=== PATIENT | female | born 1970 | race African-American/Black ===

== ENCOUNTER 2016-11-18 12:44 | Emergency (ER) | payer OTHER ==
[~2016-11-18] VITALS: Ht 170.2 cm; Wt 100.0 kg
[~2016-11-18 12:44] MED LIST: BP MED PO
[2016-11-18 16:00] VITALS: BP 139/69
[2016-11-18] MEDS ORDERED: OxyCODONE HCL/ACETAMINOPHEN 5-325 MG TABLET PO ONE (16:00)
[2016-11-18 16:35] LABS: APPEARANCE,URINE CLEAR (CLEAR); GLUCOSE, URINE (UA) NEGATIVE (NEGATIVE); KETONES,URINE NEGATIVE (NEGATIVE); LEUKOCYTE ESTERASE ,URINE NEGATIVE (NEGATIVE); PROTEIN,URINE NEGATIVE (NEGATIVE)
[2016-11-18 16:47] LABS: ADD UA MICROSCOPIC NO; OCCULT BLOOD,URINE NEGATIVE (NEGATIVE)
== END 2016-11-18 17:44 | disposition home or self-care (01) ==
LOC: EMS 12:45
DX: N94.6 Dysmenorrhea, unspecified (principal); I10 Essential (primary) hypertension
CPT/HCPCS: 99285

== ENCOUNTER 2016-12-07 18:41 | Emergency (ER) | payer OTHER ==
[~2016-12-07] VITALS: Ht 170.2 cm; Wt 100.0 kg
[2016-12-07] MEDS ORDERED: ACETAMINOPHEN 325 MG TABLET PO ONE (20:15)
[2016-12-07] MEDS ORDERED: DEXAMETHASONE 4 MG TABLET PO ONE (20:15)
[2016-12-07 20:30] VITALS: BP 123/85
[2016-12-07] MEDS ORDERED: DEXAMETHASONE SOD PHOS 4 MG/ML VIAL IM ONE (20:30)
== END 2016-12-07 20:32 | disposition home or self-care (01) ==
LOC: EMS 18:42
DX: J02.9 Acute pharyngitis, unspecified (principal); I10 Essential (primary) hypertension
CPT/HCPCS: 96372; 99283; J1100; J8540

== ENCOUNTER 2017-01-08 02:37 | Emergency (ER) | payer OTHER ==
[~2017-01-08] VITALS: Ht 170.2 cm; Wt 103.2 kg
[2017-01-08 04:31] VITALS: BP 141/83
[2017-01-08] MEDS ORDERED: IBUPROFEN 600 MG TABLET PO ONE (05:00)
== END 2017-01-08 05:26 | disposition home or self-care (01) ==
LOC: EMS 02:38
DX: M94.0 Chondrocostal junction syndrome [Tietze] (principal); I10 Essential (primary) hypertension
CPT/HCPCS: 71020; 81025; 93005; 99284

== ENCOUNTER 2018-06-05 18:05 | Emergency (ER) | payer OTHER ==
[~2018-06-05] VITALS: Ht 170.2 cm; Wt 102.3 kg
[2018-06-05] MEDS ORDERED: BP MED (18:08)
[2018-06-05 18:11] VITALS: BP 133/77
== END 2018-06-05 21:55 | disposition left against medical advice (07) ==
LOC: EMS 18:06
DX: R10.9 Unspecified abdominal pain (principal); M54.5 Low back pain; M79.604 Pain in right leg; Z53.21 Procedure and treatment not carried out due to patient leaving prior to being seen by health care provider

== ENCOUNTER 2019-07-01 15:43 | Emergency (ER) | payer OTHER ==
[~2019-07-01] VITALS: Ht 170.2 cm; Wt 100.0 kg
[~2019-07-01 15:43] MED LIST changes: +BP MED; -BP MED PO
[2019-07-01 15:47] VITALS: BP 141/83
[2019-07-01] MEDS ORDERED: HYDR25TA PO (15:49)
[2019-07-01 16:57] LABS: BASOPHILS % (AUTO) 1.1 % (0.0-2.0); EOSINOPHILS % (AUTO) 1.3 % (1.0-6.0); HEMATOCRIT 33.8 % (36-46); HEMOGLOBIN 11.5 g/dL (12.0-16.0); LYMPHOCYTES # (AUTO) 3.9 K/uL (1.0-4.8); LYMPHOCYTES % (AUTO) 33.9 % (22.0-44.0); MEAN CORPUSCULAR HEMOGLOBIN 26.9 pg (26.0-34.0); MEAN CORPUSCULAR HGB CONC 34.1 G/dL (31.0-37.0); MEAN CORPUSCULAR VOLUME 79 fL (80-100); MONOCYTES # (AUTO) 0.7 K/uL (0.1-1.0); MONOCYTES % (AUTO) 6.4 % (2.0-9.0); NEUTROPHILS # (AUTO) 6.6 K/uL (1.8-7.7); NEUTROPHILS % (AUTO) 57.3 % (40.0-70.0); PLATELET COUNT (AUTO) 391 K/uL (150-450); RED BLOOD CELL COUNT(AUTO) 4.28 MIL/uL (4.00-5.20); RED CELL DISTRIBUTION WIDTH 15.9 % (11.5-14.5)
[2019-07-01 17:16] LABS: ANION GAP 7 mmol/L (8-16); CARBON DIOXIDE 28 mmol/L (22-29); CHLORIDE 102 mmol/L (98-107); CREATININE 0.98 mg/dL (0.60-1.30); GLOMERULAR FILTR. RATE CALC > 60 mL/min (>60); GLUCOSE,RANDOM 117 mg/dL (70-110); POTASSIUM 3.5 mmol/L (3.5-5.1); SODIUM SERUM 137 mmol/L (136-145); UREA NITROGEN, BLOOD 11 mg/dL (7-18)
[2019-07-01 17:23] LABS: APPEARANCE,URINE CLEAR (CLEAR); BILIRUBIN,URINE NEGATIVE (NEGATIVE); GLUCOSE, URINE (UA) NEGATIVE (NEGATIVE); KETONES,URINE NEGATIVE (NEGATIVE); LEUKOCYTE ESTERASE ,URINE NEGATIVE (NEGATIVE); NITRATE,URINE NEGATIVE (NEGATIVE); OCCULT BLOOD,URINE LARGE (NEGATIVE); PH,URINE 5.5 (5.0-8.0); PROTEIN,URINE NEGATIVE (NEGATIVE); UROBILINOGEN,URINE 0.2 mg/dL (<=1.0)
[2019-07-01 17:28] LABS: ALANINE AMINOTRANSFERASE 15 U/L (12-78); ALBUMIN 3.4 g/dL (3.4-5.0); ALKALINE PHOSPHATASE 68 U/L (46-116); ASPARTATE AMINOTRANSFERASE 11 U/L (15-37); BILIRUBIN,TOTAL 0.3 mg/dL (0.1-1.0); HCG,QUANTITATIVE < 1 mIU/mL (0-6); LIPASE 69 U/L (73-393); TOTAL PROTEIN, SERUM 7.3 g/dL (6.4-8.2)
[2019-07-01 17:49] LABS: BACTERIA,URINE None Seen /HPF (None Seen); WBC,URINE 0-2 /HPF (0-5)
[2019-07-01 17:50] LABS: SQUAMOUS EPITHELIAL CELL,UR Few /LPF (None Seen)
== END 2019-07-01 20:56 | disposition left against medical advice (07) ==
LOC: EMS 15:44
DX: R42 Dizziness and giddiness (principal); Z53.21 Procedure and treatment not carried out due to patient leaving prior to being seen by health care provider